=== PATIENT | female | born 1995 | race Caucasian/White ===

== ENCOUNTER 2024-12-02 11:09 | Outpatient (AMB) | payer OTHER, SELFPAY ==
--- NOTE | 2024-12-02 11:11 | MHC.PC.OV ---
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 Is last menstrual period known: Yes Last menstrual period: 11/18/24 Post menopausal: No Patient : No Allergies No Known Allergies Allergy (Verified 12/02/24 11:41) Medication List - Last Reconciled 12/02/24 by Ronnell Velarde CNP No Known Home Meds Tobacco use date assessed: 12/02/24 Dental Screening Dental Screen Date: 12/02/24 Did you have a dental visit in the last 12 months?: Yes Did you have a dental problem in the last 6 months where you did not have access to dental care?: No Was dental information given to patient?: Patient has dentist HPI HPI Comments History of Present Illness Details 29-year-old female presents to [facility]. She notes that she was diagnosed with anxiety at 21 years ago and had psychotherapy. She has never been on psychotropic medication. She attributes her anxiety to worrying about her family's health. Denies psychiatric hospitalization. She notes that she is able to controlled her anxiety with CBT. Prior PCP? - [facility] Last office visit/CPE - About 10 years ago Last /labs: 7 years ago Acute issue(s) - None Past Medical History - Anxiety Surgical History - None Family History - Dad: Anxiety - Mom: Anxiety - MGM: Cardiovascular disease - MGF: Cardiovascular disease Social History - Nonsmoker. Vapes nicotine daily. Does not drink alcohol. Smokes 1 joint of cannabis nightly - Has been making healthy dietary choices. Walks frequently. Generally sleep well Health maintenance - She has never had an eye exam. - Last dental visit was a couple of weeks ago - Last Tdap was in 2019 - Has not been vaccinated for the flu this season; declines vaccination - First and last pap smear test was in 2019: normal. [facility] Medical History (Updated 12/02/24 @ 12:03 by Ronnell Velarde CNP) Anxiety Family History Father Anxiety Mother Anxiety Maternal Grandfather Cardiovascular disease Maternal Grandmother Cardiovascular disease Social History Housing: House Patient Tobacco Use Status: Never used Tobacco e-Cigarette/Vaping Use: Currently Using Second Hand Smoke Exposure: No Substance Use Type: Marijuana service: No Current occupational status: student Current occupational exposures/hazards: No Cognitive needs: No Hearing needs: No Vision needs: No Female Reproductive History Menstrual Date of last menstrual period: 11/18/24 Questionnaire PHQ-9 Over the last 2 weeks, how often have you been bothered by any of the following problems? 1. Little interest or pleasure in doing things: not at all 2. Feeling down, depressed, or hopeless: not at all 3. Trouble falling or staying asleep, or sleeping too much: several days 4. Feeling tired or having little energy: several days 5. Poor appetite or overeating: not at all 6. Feeling bad about yourself - or that you are a failure or have let yourself or your family down: not at all 7. Trouble concentrating on things, such as reading the newspaper or watching television: not at all 8. Moving or speaking so slowly that other people could have noticed. Or the opposite - being so fidgety or restless that you have been moving around a lot more than usual: not at all 9. Thoughts that you would be better off or of hurting yourself in some way: not at all Total score: 2 Depression Screening Interpretation: Negative Depression Screening Done: Yes 30724 - PHQ-9 Billing: Yes Source: Developed by Drs. Raul Valverde, Marilyn Guerrier, Murali Mosley and colleagues, with an educational erin from [employer]. Thrive Questionnaire Date Thrive assessed: 12/02/24 I am a: Patient What is your living situation today?: I have a steady place to live Within the past 12 months, did the food you bought not last and you didn't have the money to get more?: Sometimes True Within the past 12 months, did you worry whether your food would run out before you got money to buy more?: Sometimes True Do you have trouble paying for medicines?: No Do you have trouble getting transportation to medical appointments?: No Do you have trouble paying your heating and electricity bill?: No Do you have trouble taking care of your child, family member or friend?: No Do you have trouble with day-to-day activities such as bathing, preparing meals, shopping, managing finances, etc.?: No Are you currently unemployed and looking for a job?: No Are you interested in more education?: Yes Please select the resources that you would like help with: None Currently or been in a relationship where the following occur: No concerns reported THRIVE Score: 2 AUDIT C Alcohol Use Questionnaire (AUDIT-C) 1. How often do you have a drink containing alcohol?: Monthly or less 2. How many drinks containing alcohol do you have on a typical day when you are drinking?: 1 or 2 3. How often do you have six or more drinks on one occasion?: Never Total Score: 1 Score Reviewed/Action Taken: Yes LAUREN-7 AMB Questionnaire LAUREN-7 Date LAUREN - 7 assessed: 12/02/24 Feeling nervous, anxious, or on edge: 1 = Several days Not being able to stop or control worryin = Several days Worrying too much about different things: 2 = More than half the days Trouble relaxin = Several days Being so restless that it is hard to sit still: 1 = Several days Becoming easily annoyed or irritable: 0 = Not at all Feeling afraid as if something awful might happen: 1 = Several days Total LAUREN-7 score (0-4 normal; 5-9 mild; 10-14 moderate; 15-21 severe): 7 Source: Developed by Drs. Raul Valverde, Marilyn Guerrier, Murali Mosley and colleagues, with an educational erin from [employer]. LAUREN-7 Assessment Billing LAUREN-7 Assessment Tool: LAUREN-7 Assessment 77715 Review of Systems Const Details: Denies chills, Denies fatigue, Denies fever(s), Denies headache(s) and Denies weakness HEENT Denies change in vision, Denies dizziness, Denies headache(s), Denies hearing loss, Denies nasal congestion, Denies sinus pain, Denies sinus pressure and Denies sore throat Card Denies chest pain, Denies lightheadedness, Denies dyspnea and Denies other (palpitations) Resp Denies cough, Denies dyspnea and Denies wheezing GI Denies abdominal pain, Denies melena, Denies hematochezia, Denies change in bowel habits, Denies dyspepsia and Denies nausea Denies hematuria and Denies dysuria Musc Denies abnormal gait, Denies myalgias, Denies arthralgias, Denies numbness and Denies tingling Skin/Breast Denies rash, Denies unusual bruising and Denies wounds Neuro Denies abnormal gait, Denies dizziness, Denies headache(s), Denies memory loss, Denies numbness, Denies Sensory deficit (Neuro), Denies tingling and Denies weakness Psych Denies anxiety, Denies depression and Denies memory loss Endo Denies cold intolerance, Denies fatigue, Denies heat intolerance, Denies polydipsia and Denies polyuria Talat/Lymph Denies easy bleeding and Denies easy bruising Aller/Immun Denies wheezing Physical exam (Primary Care) Vital Signs: Last Vital Signs Temp 98.2 F 12/02/24 11:17 Pulse 102 H 12/02/24 11:17 Resp 16 12/02/24 11:17 BP 130/84 12/02/24 11:17 Pulse Ox 98 12/02/24 11:17 Oxygen Delivery Method Room Air 12/02/24 11:17 BMI result Body Mass Index 40.8 Tobacco/Smoking Status: Tobacco use Status Tobacco use date assessed 12/02/24 12/02/24 11:17 Patient Tobacco Use Status Never used Tobacco 12/02/24 11:17 e-Cigarette/Vaping Use Currently Using 12/02/24 11:17 PHQ-9: PHQ-9 Score PHQ-9: Total score 2 12/02/24 11:23 Depression Screening Interpretation: Negative Thrive Assessment: Date of Thrive Assessment Date Thrive assessed 12/02/24 12/02/24 11:17 Currently or been in a relationship where the following occur: No concerns reported Const Other: General: no acute distress, well developed, alert and awake Nutritional Appearance: well nourished Orientation/consciousness: patient oriented x3 HENMT Head: Yes normocephalic and Yes atraumatic Ears: hearing grossly normal bilaterally and TM's normal bilaterally General nose exam: Normal external nose present and Normal nares present Mouth: Normal oral and palatal mucosa present and moist mucous membranes Teeth and gingiva: dentition normal Throat: Yes oropharynx normal Eyes Pupils: Equal, round and reactive pupils present and Pupil accommodation reflex normal EOM: EOMs intact bilaterally Neck Neck: Yes normal visual inspection, Yes no lymphadenopathy and Yes trachea midline Thyroid: Thyroid normal Carotids: no bruits Lymphatic: no lymphadenopathy noted Chest Chest palpation & inspection: normal inspection of the chest Resp Effort & Inspection: normal respiratory effort Auscultation: clear to auscultation bilaterally Cardio Rate: regular rate Rhythm: regular rhythm Heart sounds: S1 normal heart sound present, S2 normal heart sound present, no gallops, no murmurs and no rubs Bruits: no abdominal aortic bruits and no carotid bruits GI Palpation (GI): No Abdominal aortic bruit present, Soft to palpation, nontender, No hepatosplenomegaly present and No Rebound tenderness present Auscultation: normal bowel sounds General: Yes no CVA tenderness Back/Spine/Pelvis Back: no CVA tenderness Cervical Spine: cervical ROM normal and No Cervical spine tenderness Thoracic/Lumbar Spine: thoraco-lumbar ROM normal, No pain with thoraco-lumbar ROM, No thoracic spinal tenderness and No lumbar spinal tenderness Skin General: warm and dry. Normal skin color. Normal skin turgor Lesions: no lesions Rashes: no rashes Trauma: no lacerations or abrasions Wounds: no wounds Nails: normal Neuro General: patient oriented x3, gait normal and CN's II-XI intact bilaterally Cranial nerves: Yes Equal, round and reactive pupils present Cognition (Neuro): normal cognition Gait exam (Neuro): Normal gait present Motor exam (neuro): 5/5 motor strength present throughout Sensory Exam: No Sensory deficit (Neuro) Deep tendon reflexes (DTR's): Right patellar reflex intensity grade: 2+ and Left patellar reflex intensity grade: 2+ Extrem General: Yes normal to inspection, No edema and No calf tenderness Psych Appearance: grossly normal Affect: normal affect Attitude: cooperative Thought process: Normal thought process present Coding Level of Care Code New Pt Level 3 (55815) New Pt Prev Care 18-39yr(09899 Diagnoses Normal physical examination, routine Z00.00 Anxiety F41.9 Morbid obesity with BMI of 40.0-44.9, adult E66.01; Z68.41 Engages in vaping Z72.89 Eye exam, routine Z01.00 Pap smear for cervical cancer screening Z12.4 Laboratory tests ordered as part of a complete physical exam (CPE) Z00.00 Additional Codes LAUREN-7 Assessment Billing - LAUREN-7 Assessment Tool: LAUREN-7 Assessment 77115 ([id number]) PHQ-9 - 20086 - PHQ-9 Billing: Yes ([id number]) Assessment & Plan Assessment & Plan (1) Normal physical examination, routine: Code(s): Z00.00 - Encounter for general adult medical examination without abnormal findings Category: Medical Plan: No significant functional limitation noted. Advised to perform lab work and follow-up for telehealth visit in 2-3 weeks for labs review. Return sooner with symptoms or concerns. Verbalized understanding and agreed with the plan. (2) Anxiety: Code(s): F41.9 - Anxiety disorder, unspecified Category: Medical Plan: She notes that she was diagnosed with anxiety at 21 years ago and had psychotherapy. She has never been on psychotropic medication. She attributes her anxiety to worrying about her family's health. Denies psychiatric hospitalization. She notes that she is able to controlled her anxiety with CBT. LAUREN-7 score revealed mild anxiety. PHQ-9 score is normal. Continue to practice CBT. Routine exercise encouraged. Follow-up with worsening or new symptoms. Verbalized understanding and agreed with the plan. (3) Morbid obesity with BMI of 40.0-44.9, adult: Code(s): E66.01 - Morbid (severe) obesity due to excess calories; Z68.41 - Body mass index [BMI] 40.0-44.9, adult Category: Medical Plan: She currently weighs 268 lb, BMI is 40.8. Declines referral to convenience store manager/dietitian or weight management clinic at this time and notes that she would continue to make healthy lifestyle changes. Healthy diet and routine exercise encouraged. Follow-up as needed. Verbalized understanding and agreed with the plan. (4) Engages in vaping: Code(s): Z72.89 - Other problems related to lifestyle Category: Medical Plan: She vapes nicotine daily. Instructed on the health risks and complications of nicotine and vaping and cessation encouraged. Declines treatment for nicotine cessation at this time and notes that she plans to cut down and quit vaping. Advised to follow-up as needed. Verbalized understanding and agreed with the plan. (5) Eye exam, routine: Code(s): Z01.00 - Encounter for examination of eyes and vision without abnormal findings Category: Medical Plan: She has never had an eye exam. Referred to Ophthalmology for routine eye exam. (6) Pap smear for cervical cancer screening: Code(s): Z12.4 - Encounter for screening for malignant neoplasm of cervix Category: Medical Plan: First and last pap smear test was in 2020: normal. Referred to [facility] network control operator for a pap smear test. Referred to [facility] site identification specialist for a Pap smear test. (7) Laboratory tests ordered as part of a complete physical exam (CPE): Code(s): Z00.00 - Encounter for general adult medical examination without abnormal findings Category: Medical Plan: Fasting labs ordered as part of a complete physical exam. Advised to fast for at least 10 hours before getting labs drawn. May drink water Verbalized understanding and agreed with treatment plan. Orders: Orders Complete Blood Count Auto Diff Today Z00.00 - Encounter for general adult medical examination without abnormal findings Comprehensive [place]. Panel Fast Today Z00.00 - Encounter for general adult medical examination without abnormal findings Microalbumin, Random (w Creat) Today Z00.00 - Encounter for general adult medical examination without abnormal findings UA CC w/rflx Micro + Cult Today Z00.00 - Encounter for general adult medical examination without abnormal findings Lipid Panel Today Z00.00 - Encounter for general adult medical examination without abnormal findings TSH reflex Free T4 Today Z00.00 - Encounter for general adult medical examination without abnormal findings Vitamin D 25-OH Total Today Z00.00 - Encounter for general adult medical examination without abnormal findings Referrals [facility]EL[facility] Referral Z12.4 - Encounter for screening for malignant neoplasm of cervix Ophthalmology Referral Z01.00 - Encounter for examination of eyes and vision without abnormal findings
[2024-12-02 11:17] VITALS: BP 130/84; PULSE 102; RESP 16; TEMP 36.8; O2SAT 98; BMI 40.8
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
== END 2024-12-02 12:03 | disposition home or self-care (01) ==
LOC: HO.HMCFM 11:10
PROVIDERS: PCP Nurse Practitioner Family; Visit Provider Nurse Practitioner Family
DX: Z00.00 Encounter for general adult medical examination without abnormal findings (principal); F41.9 Anxiety disorder, unspecified; E66.01 Morbid (severe) obesity due to excess calories; Z68.41 Body mass index [BMI] 40.0-44.9, adult; Z72.89 Other problems related to lifestyle

== ENCOUNTER → 2024-12-02 11:09 | Outpatient (BNVA) | payer OTHER, SELFPAY | PROVIDERS: PCP Nurse Practitioner Family; Visit Provider Nurse Practitioner Family | DX: Z00.00 Encounter for general adult medical examination without abnormal findings (principal); F41.9 Anxiety disorder, unspecified; E66.01 Morbid (severe) obesity due to excess calories; Z72.89 Other problems related to lifestyle; Z68.41 Body mass index [BMI] 40.0-44.9, adult | CPT/HCPCS: 96127; 99202; 99385 ==

== ENCOUNTER 2024-12-26 14:27 | Outpatient (AMB) | payer OTHER, SELFPAY ==
--- NOTE | 2024-12-26 14:21 | A.OFFPC_ITS ---
Intake Visit Reasons: Telehealth 2-3 wks labs review Allergies No Known Allergies Allergy (Verified 12/26/24 14:23) Tobacco use date assessed: 12/26/24 Dental Screening Dental Screen Date: 12/26/24 Did you have a dental visit in the last 12 months?: Yes Did you have a dental problem in the last 6 months where you did not have access to dental care?: No Was dental information given to patient?: Patient has dentist HPI HPI Comments History of Present Illness Details 29-year-old female presents for a [facility] visit for review of recent lab results. She offers no complaints and denies acute symptoms at this time. [facility] Medical History (Updated 12/26/24 @ 15:16 by Ronnell Velarde CNP) Anxiety Family History Father Anxiety Mother Anxiety Maternal Grandfather Cardiovascular disease Maternal Grandmother Cardiovascular disease Social History (Updated 12/26/24 @ 14:24 by Kika Mobley MA) Housing: House Alcohol intake: current Comment: Once every 6 months Patient Tobacco Use Status: Never used Tobacco e-Cigarette/Vaping Use: Currently Using Second Hand Smoke Exposure: No Use of substances other than those prescribed or required for medical reasons: Yes Substance Use Type: Marijuana service: No Current occupational status: student Current occupational exposures/hazards: No Cognitive needs: No Hearing needs: No Vision needs: No Questionnaire PHQ-9 Over the last 2 weeks, how often have you been bothered by any of the following problems? 1. Little interest or pleasure in doing things: not at all 2. Feeling down, depressed, or hopeless: not at all 3. Trouble falling or staying asleep, or sleeping too much: several days 4. Feeling tired or having little energy: not at all 5. Poor appetite or overeating: several days 6. Feeling bad about yourself - or that you are a failure or have let yourself or your family down: not at all 7. Trouble concentrating on things, such as reading the newspaper or watching television: not at all 8. Moving or speaking so slowly that other people could have noticed. Or the opposite - being so fidgety or restless that you have been moving around a lot more than usual: not at all 9. Thoughts that you would be better off or of hurting yourself in some way: not at all Total score: 2 Depression Screening Interpretation: Negative Depression Screening Done: Yes 82040 - PHQ-9 Billing: Yes Source: Developed by Drs. Raul Valverde, Marilyn Guerrier, Murali Mosley and colleagues, with an educational erin from [employer]. Thrive Questionnaire Date Thrive assessed: 12/02/24 LAUREN-7 AMB Questionnaire LAUREN-7 Date LAUREN - 7 assessed: 12/02/24 Source: Developed by Drs. Raul Valverde, Marilyn Guerrier, Murali Msoley and colleagues, with an educational erin from [employer]. Review of Systems Const Details: Denies chills, Denies fatigue, Denies fever(s), Denies headache(s) and Denies weakness Cardiac Denies chest pain, Denies claudication, Denies leg edema, Denies lightheadedness, Denies palpitations, Denies dyspnea, Denies dyspnea on exertion, Denies orthopnea and Denies other (Loss of consciousness) Resp Denies cough, Denies excessive phlegm production, Denies dyspnea, Denies dyspnea on exertion, Denies snoring and Denies wheezing Physical exam (Primary Care) Tobacco/Smoking Status: Tobacco use Status Tobacco use date assessed 12/26/24 12/26/24 14:24 Patient Tobacco Use Status Never used Tobacco 12/26/24 14:24 e-Cigarette/Vaping Use Currently Using 12/26/24 14:24 PHQ-9: PHQ-9 Score PHQ-9: Total score 2 12/26/24 14:25 Depression Screening Interpretation: Negative Thrive Assessment: Date of Thrive Assessment Date Thrive assessed 12/02/24 12/26/24 14:24 Const Other: Patient is alert and oriented x3 Telehealth Telehealth Telehealth Platform: Telephone Location of provider rendering services: practice address Location of patient: address on file Patient Identification confirmed using: Name, : Yes Telehealth method: voice only Patient verbally consented to treatment: Yes Patient verbally consented to billing insurance company: Yes Patient informed of any privacy concerns related to visit: Yes Coding Level of Care Code Tele Est Pt Level 3 (74406) Diagnoses Elevated LDL cholesterol level E78.00 Vitamin D deficiency E55.9 Additional Codes PHQ-9 - 03926 - PHQ-9 Billing: Yes ([id number]) Time Spent (min) 15 Assessment & Plan Assessment & Plan (1) Elevated LDL cholesterol level: Code(s): E78.00 - Pure hypercholesterolemia, unspecified Category: Medical Plan: Recent LDL level is slightly elevated, 125. Triglycerides, total cholesterol, and HDL levels are normal. Advised to limit foods high in saturated fat and avoid foods high in trans fat. Routine exercise encouraged. Will monitor lipid panel yearly. Verbalized understanding and agreed with the plan. (2) Vitamin D deficiency: Code(s): E55.9 - Vitamin D deficiency, unspecified Category: Medical Plan: Recent vitamin-D level is significantly low, 17.8. Vitamin D3 2000 units daily ordered; advised to take as prescribed. Informed that the sun is a good source of vitamin-D. Perform vitamin-D blood work 2-3 days before next visit. Follow-up for a telehealth visit in 6-8 weeks. Return sooner with symptoms or concerns. Verbalized understanding and agreed with the plan. Medications: New cholecalciferol (vitamin D3) 50 mcg PO DAILY 90 days 90 tabs 2RF
--- OUTSIDE RECORDS SUMMARY | 2024-12-26 14:29 | XMS_ITS | Data Portability ---
Author Organization [place] [facility], [facility] Address [address] [place] [id number] Assessment Encounter Date Assessment Date Assessment LastModified by Organization Details LastModified Time 01/25/2015 01/25/2015 Uri- Symptomatic care. Call if worse/ not improving or with any concerns [email or web address] Not available 01/25/2015 13:43:16 Plan of Treatment Reminders Order Date Submit Date Provider Last Modified By Organization Details Last Modified Time Details Appointments None recorde d. Lab CT + NG DNA, PCR, urine 016 08/18/19 16 ANJEL [facility] (Centralized Electronic Ordering - All Locations), Patient Can Go To The Location Of Their Choice, [id number] 6 13:53:40 lipid panel, serum 016 08/18/19 16 DBA_PATCH_ [id number] [facility] (Centralized Electronic Ordering - All Locations), Patient Can Go To The Location Of Their Choice, [id number] 6 04:08:10 Referral None recorde d. Procedures None recorde d. Surgeries None recorde d. Imaging None recorde d. Medication Orders None recorde d. Patient TargetsNo targets recorded. Patient Instructions Encounter Date Encounter Id Patient Instructions Last Modified By Organization Details Last Modified Time 08/18/2015 [id number] patient health questionnaire modified for adolescents* ANJEL Not available 06/18/2016 05:01:36 immunization: what you need to know carmelinsmaria fernanda Not available 08/18/2015 09:20:10 insomnia in children: care instructions [email or web address] Not available 08/18/2015 09:36:24 sleep problems i n your teen: care instructions kwitherell Not available 08/18/2015 09:36:24 when your child IS overweight: care instructions kwitherell Not available 08/18/2015 09:36:24 your child WHO I S overweight: care instructions kwitherell Not available 08/18/2015 09:36:24 11/01/2015 [id number] rest/IB; monitor ; supportive care [email or web address] Not available 11/01/2015 14:50:37 Reason for Referral None Reported. Results Created Date Observation Date Name Description Value Unit Range Abnormal Flag Note LastModifiedBy Organization Detail LastModifiedTime 08/18/19 16 08/18/2015 patie nt healt h quest ionna ofelia modif ied for adole scent s* PHQ-9 negati ve Not Available [facility] [address] [place] [address], [place], [address], 08/18/2015 08:25:50 08/18/19 16 08/19/2015 CT + NG DNA, PCR, unspe cifie d speci men urine chlamydia amp probe POSIT BELÉN Chlam ydia Trach omati s RNA detec ace in this patie nt's sampl e (REFE RENCE RANGE /NORM AL VALUE : NOT DETEC ACE) Not Available [facility] (Centralized Electronic Ordering - All Locations) Patient Can Go To The Location Of Their Choice, [id number] 08/19/2015 13:53:40 08/18/19 16 08/19/2015 CT + [...] neede d. Conta ct phone numbe r . Thera peuti c failu re or succe ss canno t be deter mined with the Aptim a Combo 2 assay since nucle ic acid may persi st follo wing appro priat e antim icrob ial thera py. The [facility] se Contr ol and Preve ntion ([facility]) recom mends confi rmato ry retes ting using cultu re or a diffe rent nucle ic acid ampli ficat ion test when posit belén resul ts occur , if indic ated. Testi ng perfo rmed or repor ace by [facility] ate Refer ence Labor atori es, a [facility], [address] [place] [address] CLIA [id number] Bev martin MD, PhD, Medic al Direc tor Not Available [facility] (Centralized Electronic Ordering - All Locations) Patient Can Go To The Location Of Their Choice, [id number] 08/19/2015 13:53:40 Result Notes None recorded. Problems Name Problem SNOMED Code Status Onset Date Resolution Date Notes Provider Name and Address Organization Details Recorded Time Morbid obesity 000609366 Active Deb Strauss MD [address] [place], [place] [address]Raquel [place], 3, [facility] 3 09:55:05 Gingival disease 70185342 Active Deb Strauss MD [address] [place], [place] [address] [place], 3, [facility] 3 09:55:05 Streptococc al sore throat 59398754 Completed 09/05/2013 Lilliam yap [facility] 4 16:49:57 Headache 66410977 Active Lilliam yap [facility] 4 17:21:51 Concussion injury of brain 209830272 Active [facility] 4 17:21:51 Streptococc al sore throat 00089237 Active 09/26 Lilliamemily yap [facility] 4 13:36:32 Acute pharyngitis 493861699 Completed 03/31/2016 Lilliam yap [facility] 6 16:46:40 Upper respiratory infection 38084876 Completed 03/31/2016 Lilliamemily yap [facility] 6 16:46:43 Chlamydial infection 213626013 Active 2015 Lilliamemily Villafuerte [facility] 6 08:11:30 Pain in throat 754295855 Completed 09/05/2013 Lilliamemily Villafuerte [facility] 4 16:49:57 Non-suppura tive otitis media with eustachian tube disorder 381655877 Completed 09/05/2013 Lilliamemily Villafuerte [facility] 4 16:49:57 Dysfunction of eustachian tube 60557165 Completed 09/05/2013 Lilliamemily Villafuerte [facility] 4 16:49:57 Abnormal weight gain 699347671 Completed 200609/05/2013 Lilliamemily Villauferte [facility] 4 16:49:57 Acute pharyngitis 753032662 Completed 09/05/2013 Lilliamemily Villafuerte [facility] 6 16:46:40 Allergic rhinitis 02161121 Completed 09/05/2013 Lilliamemily Villafuerte [facility] 4 16:49:57 Sprain of ankle 17728032 Completed 09/05/2013 Lilliamemily Villafuerte [facility] 4 16:49:57 Vaginitis and vulvovagini tis Completed 09/05/2013 Lilliamemily yap [facility] 4 16:49:57 Problem Notes None recorded. Procedures Surgical History Date Name Laterality Status Provider Name and Address Organization Details Recorded Time 7 Wax Removal, Irrigation Unilateral completed Javon Kearney MD [address] [place] [address], [phone], [facility] 10/12/2016 17:25:38 6 Wax Removal, Irrigation Unilateral completed Lilliam Villafuerte [facility] 03/31/2016 16:54:45 Imaging Results None recorded. [...] Details Last Updated DateTime 08/18/2015 42.4 kg/m2 200337.5 3227 g 170.18 cm 120 mm[Hg] 72 mm[Hg] Amalia White R.N. [facility] 6 08:30:56 Date Recorded Heart rate Oxygen saturation Oxygen saturation in Arterial blood by Pulse oximetry Provider Name and Address Organization Details Last Updated DateTime 11/01/2015 112 /min 98 % 98 % Monika Lazo [facility] 11/01/2015 14:38:58 Social History Question Answer Notes LastModified by Organizat ion Details LastModified Time Tobacco Smoking Status Never Smoker Alondra yap, [facility] 09/24/2012 16:33:25 Hard Of Hearing Or Deaf In One Or Both Ears? 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 [facility] available 08/18/2015 Parent's [...] Time HPV, quadrivalent 1 completed Not Available [facility] 08/02/2019 02:33:58 Tdap 1 completed Not Available [facility] 08/02/2019 02:33:42 meningococcal MCV4P 1 completed Not Available [facility] 08/02/2019 02:33:25 Hib, unspecified formulation 8 completed Not Available [facility] 05/20/2011 03:18:43 IPV 9 completed Not Available [facility] 05/20/2011 03:18:43 DTaP, unspecified formulation 8 completed Not Available [facility] 05/20/2011 03:18:43 Hep B, unspecified formulation 9 completed Not Available [facility] 05/20/2011 03:18:43 DTaP, unspecified formulation 8 completed Not Available [facility] 05/20/2011 03:18:43 varicella 9 completed Not Available [facility] 05/20/2011 03:18:43 DTaP, unspecified formulation 8 completed Not Available [facility] 05/20/2011 03:18:43 Hep B, unspecified formulation 8 completed Not Available [facility] 05/20/2011 03:18:43 Hib, unspecified formulation 8 completed Not Available [facility] 05/20/2011 03:18:43 IPV 8 completed Not Available [facility] 05/20/2011 03:18:43 DTaP, unspecified formulation 9 completed Not Available [facility] 05/20/2011 03:18:43 MMR 9 completed Not Available [facility] 05/20/2011 03:18:43 Hib, unspecified formulation 8 completed Not Available [facility] 05/20/2011 03:18:43 Hib, unspecified formulation 9 completed Not Available [facility] 05/20/2011 03:18:43 Hep B, unspecified formulation 8 completed Not Available [facility] 05/20/2011 03:18:43 IPV 2 completed Not Available [facility] 05/20/2011 03:18:43 DTaP, unspecified formulation 2 completed Not Available [facility] 05/20/2011 03:19:20 MMR 1 completed Not Available [facility] 05/20/2011 03:18:43 IPV 8 completed Not Available [facility] 05/20/2011 03:18:43 meningococcal MCV4P 6 completed Not Available [facility] 08/02/2019 02:36:33 varicella 6 completed Not Available [facility] 08/02/2019 02:36:40 Past Encounters Encounter ID Performer Location Encounter Start Date Encounter Closed Date Diagnosis/Indication Diagnosis SNOMED-CT Code Diagnosis ICD10 Code Diagnosis Note [id number] Lilliam Villafuerte MD [facility] w [address] [place] [id number] 05/03/2007 13:11:45 05/03/2007 14:03:10 [id number] Lilliam Villafuerte MD [facility] [address] [place] [id number] 4 10/08/2008 10:04:20 10/08/2008 10:38:15 [id number] Deb Strauss MD [facility] [address] [place] [id number] 4 11/29/2009 16:21:59 11/29/2009 16:43:26 [id number] Deb Strauss MD [facility] [address] [place] [id number] 4 10/05/2010 10:00:45 10/05/2010 11:54:48 [id number] Faraz Hollingsworth MD [facility] [address] [place] [id number] 4 04/10/2012 13:31:36 04/10/2012 14:08:47 [id number] Lilliam Villafuerte MD [facility] [address] [place] [id number] 4 09/24/2012 16:17:10 09/24/2012 16:42:31 [id number] Deb Strauss MD [address] [id number] 04/30/2013 08:15:02 04/30/2013 09:57:07 Well child 490991872 Increased body mass index 48547988 Patient given informatio n about patient portal and educationa l informatio n on nutrition, exercise and health risks Morbid obesity 411318189 Gingival disease 19437649 [id number] Faraz Hollingsworth MD [facility] [address] [place] [id number] 4 08/12/2013 13:21:24 08/12/2013 13:55:30 Acute pharyngitis 492566489 Streptococ ethan sore throat 58440822 [id number] Lilliam Villafuerte MD [address] [id number] 09/05/2013 16:28:48 09/05/2013 17:22:09 Headache 18295402 mild no vomiting Concussion injury of brain 932872044 Concussion mild - NO LOC Brain rest [...] if vomiting, worsening OLMSTEAD or MS changes [id number] Deb Strauss MD [address] [id number] 09/22/2013 13:20:50 09/22/2013 13:38:32 Streptococcal sore throat 47844499 [id number] Lilliam Villafuerte MD [address] [id number] 10/14/2013 13:27:11 10/14/2013 13:46:21 Acute pharyngitis 178554650 Upper resp iratory infection 34127154 [id number] Lilliam Villafuerte MD [address] [id number] 04/10/2014 13:20:26 04/10/2014 14:04:50 Acute pharyngitis 829810139 Viral syndrome [id number] Francis Greco MD [address] [address] 06/02/2014 12:55:49 06/02/2014 13:37:16 Acute pharyngitis 130978117 [id number] Francis Greco MD [address] [address] 01/25/2015 13:25:54 01/25/2015 13:46:18 Upper respiratory infection 25410537 [id number] Lilliam Villafuerte MD [address] [address] 08/18/2015 08:15:08 08/18/2015 09:39:26 Active or passive immunization 706562876 Z23 needle phobic- disc need for vaccines Well child 279288116 Z00 .121 Healthy female with chronic obesity, anxiety, now doing well in 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 SS disc- lives at home with mom and step family, biol. father with brain CA Morbid obesity 937382357 E66.01 disc at length- skipping meals not great idea- disc avoid CHO - check chol Anxiety 24101649 F41.9 Recommende d therapist Insomnia 129473615 G47.0 0 CBT - Insomnia disc and referenced for patient [id number] Faraz Hollingsworth MD [address] [id number] 11/01/2015 14:31:42 11/01/2015 14:57:41 Upper respiratory infection 71470282 J06.9 Contusion of knee 611290 06 S80.01XA [id number] Lilliam Villafuerte MD [address] [id number] 03/31/2016 16:26:15 03/31/2016 17:11:30 Sensation of blocked ear 087626927 H93.299 Impacted cerumen 1274904 6 H61.20 avoid q tips- disc at length- distilled white vinegar 2-3 times a week [id number] Javon Kearney MD [address] [id number] 10/12/2016 16:38:01 10/12/2016 17:27:24 Impacted cerumen 95788663 H61.23 Large amount of cerumen easily removed with irrigation . F/U PRN Health Concerns Section Related Observation LastModified by Organization Detai ls LastModified Time None Recorded Concern Status LastModified by Organization Details LastModified Time None Recorded Advance Directives Directive None Recorded Payers Insurance Date Sequence Insurance Name Policy Number Policy Valencia Covered Member ID Valencia Member ID Guarantor Name 02/28/2014 1 [place] Mamadou Ivy [id number] Mamadou Ivy 10/12/2016 1 [place] [id number] Mamadou Ivy [id number] Mamadou Ivy Notes Date Note Type Note Provider Name and Address Organization Details Recorded Time 01/25/2015 text/html Doing better tod ay. is improving. Francis Greco MD [address] [place] [address], [place], [phone], [facility] 01/25/2015 13:45:41 08/18/2015 text/html RS Sick Visit Narrative HistoryReported bypatient.Notes:? Raw tomato allergy. Pt states that her throat feels itchy & makes her cough/harder to breath. 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 Lilliam yap, [facility] 08/18/2015 09:35:32 11/01/2015 text/html RS Sick [...] noted above; no other GI sx Faraz yap, [facility] 11/01/2015 14:50:54 03/31/2016 text/html RS Sick Visit Narrative HistoryReported bypatient.Notes:C/O R > L ears blocked < 1 wk.No cough or nasal congestion. No fever. No sore throat. + OLMSTEAD yest but this isn't unusual.ALSO C/O loss of appetite since early 03/31.Relates this to starting school again and being stressed about it.Lives at home. + nausea when I eat a proper meal and is now trying to eat smaller amounts to avoid nausea.No diarrhea. PT DECLINES TO BE WEIGHED.IS very stressed about school and she believes this may be related to the nausea-will recheck PRN if appetite does not return since she is not vomiting and can afford to lose weight Lilliam yap, [facility] 03/31/2016 16:55:49 10/12/2016 text/html RS Sick Visit Narrative HistoryReported bypatient.Notes:C/O decreased hearing in R ear. No ear pain. No pus/ discharge coming out of ear. Afebrile. No N/V/D, cough or congestion. Eating and drinking nl. Sleeping nl. No OTC medications used. No sick contacts. Thinks it is impacted cerumen. Had stopped using Qtips but has been using it recently. Javon Kearney MD [address] [place] [address], [place], [address], [facility] 10/12/2016 17:26:12 OBGyn Episode No OBEpisode recorded.
== END 2024-12-26 15:24 | disposition home or self-care (01) ==
LOC: HO.HMCFM 14:27
PROVIDERS: PCP Nurse Practitioner Family; Visit Provider Nurse Practitioner Family
DX: E78.00 Pure hypercholesterolemia, unspecified (principal); E55.9 Vitamin D deficiency, unspecified

== ENCOUNTER → 2024-12-26 14:27 | Outpatient (BNVA) | payer OTHER, SELFPAY | PROVIDERS: PCP Nurse Practitioner Family; Visit Provider Nurse Practitioner Family | DX: E78.00 Pure hypercholesterolemia, unspecified (principal); E55.9 Vitamin D deficiency, unspecified | CPT/HCPCS: 96127 ==